=== PATIENT | female | born 1935 | race Caucasian/White ===

== ENCOUNTER → 2017-07-09 08:17 | Outpatient (CLI) | payer MEDICARE, OTHER, SELFPAY ==
[2017-07-09 10:07] LABS: Hemoglobin A1c 6.1 % (4.2-6.3)
[2017-07-09 10:13] LABS: ALB/GLOB Ratio 0.9 RATIO (0.9-2.4); AST(SGOT) 22 U/L (15-37); Alanine Aminotransfer ALT/SGPT 15 U/L (13-56); Albumin, Serum 3.6 g/dL (3.2-5.0); Alkaline Phosphatase 78 U/L (45-117); BUN 25 mg/dL (7-18); BUN/Creat Ratio 18.8 RATIO (10-20); Calcium,Total 9.2 mg/dL (8.5-10.1); Creatinine, Serum 1.33 mg/dL (0.55-1.02); EST Glomerular Filtration Rate 41 mL/min (>60); Est Glom Filt Rate - Afr Amer 49 mL/min (>60); Globulin 4.2 g/dL (2.2-4.2); Glucose 102 mg/dL (74-106); Protein, Total 7.8 g/dL (6.4-8.2); Sodium Level 141 mmol/L (136-145)
[2017-07-09 10:14] LABS: Anion Gap 9 (5-15); Chloride 103 mmol/L (98-107); Potassium 4.3 mmol/L (3.5-5.1)
[2017-07-09 10:20] LABS: AST(SGOT) 24 U/L (15-37); Alanine Aminotransfer ALT/SGPT 15 U/L (13-56); Albumin, Serum 3.5 g/dL (3.2-5.0); Alkaline Phosphatase 78 U/L (45-117); Cholesterol 147 mg/dL (200); Globulin 4.5 g/dL (2.2-4.2); High Density Lipoprotein 40 mg/dL; Triglycerides 266 mg/dL; Very Low Density Lipoprotein 53 mg/dL (5-40)
[2017-07-10 08:49] LABS: Vitamin D,25 Hydroxy 43.4 ng/mL (29.95-100.01)
== END ==
PROVIDERS: Internal Medicine Cardiovascular Disease; Family Provider Family Medicine; PCP Family Medicine; Visit Provider Internal Medicine Endocrinology, Diabetes & Metabolism
DX: E11.42 Type 2 diabetes mellitus with diabetic polyneuropathy (principal); E55.9 Vitamin D deficiency, unspecified
CPT/HCPCS: 36415; 80053; 80061; 80076; 82306; 83036

== ENCOUNTER → 2017-08-28 07:30 | Outpatient (CLI) | payer MEDICARE, OTHER, SELFPAY ==
--- NOTE | 2017-08-28 07:32 | BI_ITS ---
MAMMOGRAPHY - BILATERAL SCREENING REASON FOR EXAM: Female, 82 years old. Routine annual screening examination. PERTINENT HISTORY: Remote right excisional breast biopsy. TECHNIQUE: Digital bilateral breast milan (3D mammographic acquisition) in the CC and MLO projections. 2-D mediolateral oblique (MLO) and craniocaudad (CC) views of both breasts were obtained. CAD: Full Field Digital Mammography with Computer Added Detection was performed. COMPARISON: Comparison is made with prior study dated March 28, 2016 and February 23, 2015. FINDINGS: Breast Composition: There are scattered areas of fibroglandular density. There are no dominant masses or suspicious calcifications. No other significant abnormalities are identified. There has been no significant change since the prior study. BI/SCREENING MAMM (CAD), BILAT IMPRESSION: Stable bilateral screening mammogram. Yearly follow-up mammogram recommended. (A) ASSESSMENT CATEGORY: BIRADS Category 1: Negative. A letter regarding these results will be sent to the patient by the facility within 30 days. Approximately 10% of breast cancers are not detected by mammography. A normal mammogram should not delay biopsy of a clinically suspicious abnormality. [id number] Electronically Signed: Alfonso Perez MD at 9:50 EDT Tel [phone], Service support ,
== END ==
PROVIDERS: Family Provider Nurse Practitioner; PCP Nurse Practitioner; Visit Provider Nurse Practitioner
DX: Z12.31 Encounter for screening mammogram for malignant neoplasm of breast (principal)
CPT/HCPCS: 77063; 77067

== ENCOUNTER → 2017-10-14 10:02 | Outpatient (CLI) | payer MEDICARE, OTHER, SELFPAY ==
[2017-10-14 11:48] LABS: ALB/GLOB Ratio 0.8 RATIO (0.9-2.4); AST(SGOT) 21 U/L (15-37); Alanine Aminotransfer ALT/SGPT 16 U/L (13-56); Albumin, Serum 3.5 g/dL (3.2-5.0); Alkaline Phosphatase 90 U/L (45-117); Anion Gap 9 (5-15); BUN 21 mg/dL (7-18); BUN/Creat Ratio 15.2 RATIO (10-20); Calcium,Total 9.2 mg/dL (8.5-10.1); Chloride 104 mmol/L (98-107); Creatinine, Serum 1.38 mg/dL (0.55-1.02); EST Glomerular Filtration Rate 39 mL/min (>60); Est Glom Filt Rate - Afr Amer 47 mL/min (>60); Globulin 4.4 g/dL (2.2-4.2); Glucose 105 mg/dL (74-106); Potassium 4.8 mmol/L (3.5-5.1); Protein, Total 7.9 g/dL (6.4-8.2); Sodium Level 141 mmol/L (136-145)
[2017-10-14 15:18] LABS: Microalbumin,Random Urine 50.9 mg/L (NO RANGE EST.); Microalbumin:Creatinine Ratio 46.3 mg/g CRE (<30 mg/g CRE)
== END ==
PROVIDERS: Family Provider Nurse Practitioner; PCP Nurse Practitioner; Visit Provider Internal Medicine Endocrinology, Diabetes & Metabolism
DX: E11.42 Type 2 diabetes mellitus with diabetic polyneuropathy (principal)
CPT/HCPCS: 36415; 80053; 82043; 82570; 83036

== ENCOUNTER → 2017-10-29 08:56 | Outpatient (CLI) | payer MEDICARE, OTHER, SELFPAY ==
[2017-10-30 16:11] LABS: PROEL- A/G Ratio 0.9 (0.7-1.7); PROEL- Albumin 3.4 g/dL (2.9-4.4); PROEL- Alpha-1 Globulin 0.2 g/dL (0.0-0.4); PROEL- Alpha-2 Globulin 1.2 g/dL (0.4-1.0); PROEL- Beta Globulin 1.2 g/dL (0.7-1.3); PROEL- Gamma Globulin 1.4 g/dL (0.4-1.8); PROEL- TOTAL PROTEIN 7.4 g/dL (6.0-8.5)
[2017-10-31 14:07] LABS: PROELU- Albumin, Urine 51.9 % (.); PROELU- Alpha-1-Globulin,Ur 4.7 % (.); PROELU- Beta Globulin, Ur 19.8 % (.); PROELU- Gamma Globulin, Ur 10.7 % (.)
[2017-11-01 11:46] LABS: Total Protein, Ur < 4.0 mg/dL (Not Estab.)
== END ==
PROVIDERS: Family Provider Nurse Practitioner; PCP Nurse Practitioner; Visit Provider Internal Medicine Endocrinology, Diabetes & Metabolism
DX: E11.42 Type 2 diabetes mellitus with diabetic polyneuropathy (principal)
CPT/HCPCS: 36415; 84165; 84166

== ENCOUNTER → 2018-02-17 10:11 | Outpatient (CLI) | payer MEDICARE, OTHER, SELFPAY ==
[2018-02-17 10:10] VITALS: BMI 37.6
[2018-02-17 11:41] LABS: Hemoglobin A1c 6.2 % (4.2-6.3)
[2018-02-17 11:43] LABS: ALB/GLOB Ratio 0.8 RATIO (0.9-2.4); AST(SGOT) 20 U/L (15-37); Alanine Aminotransfer ALT/SGPT 19 U/L (13-56); Albumin, Serum 3.4 g/dL (3.2-5.0); Alkaline Phosphatase 97 U/L (45-117); Anion Gap 10 (5-15); BUN 21 mg/dL (7-18); BUN/Creat Ratio 15.6 RATIO (10-20); Calcium,Total 9.1 mg/dL (8.5-10.1); Chloride 101 mmol/L (98-107); Creatinine, Serum 1.35 mg/dL (0.55-1.02); EST Glomerular Filtration Rate 40 mL/min (>60); Est Glom Filt Rate - Afr Amer 48 mL/min (>60); Globulin 4.5 g/dL (2.2-4.2); Glucose 131 mg/dL (74-106); Magnesium 1.9 mg/dL (1.6-2.6); Potassium 4.4 mmol/L (3.5-5.1); Protein, Total 7.9 g/dL (6.4-8.2); Sodium Level 140 mmol/L (136-145)
--- OUTSIDE RECORDS SUMMARY | 2018-05-21 23:08 | XMS RPT_ITS ---
:1935 Author Organization OHIP Care Team Providers Name Role Phone MS. SARA VOGEL Attending Unavailable [facility], [facility] Primary Care Unavailable NOHEMY JENKINS Attending Unavailable NOHEMY JENKINS [facility]erring [facility] Unavailable Roro Linton Attending Unavailable Uday Walker Attending Unavailable Kari Deshpande Referring Unavailable NOHEMY JENKINS Attending Unavailable NOHEMY JENKINS Referring Unavailable Kari Deshpande [facility] Referring Unavailable [facility] Primary Care Unavailable Roro Smith Attending Unavailable Kari Deshpande [facility] Unavailable NOHEMY JENKINS Attending Unavailable NOHEMY JENKINS Referring [facility] Unavailable NOHEMY JENKINS Attending Unavailable NOHEMY JENKINS Referring Un[facility] Unavailable PROBLEMS PROBLEMS DATE TYPE CONDITION / CODE ATTENDING STATUS SOURCE 02/17/2018 Unknown 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 / Repository E11.42(ICD-10) 02/17/2018 Unknown E03.8 - Other WINOHEMY KEVIN Active [place] specified Community hypothyroidism / Hospital E03.8(ICD-10) Repository 02/17/2018 Unknown 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 - Magnesium WIETENOHEMY MALIK Active [place] deficiency / Community E61.2(ICD-10) Hospital Repository 07/09/2017 Unknown E55.9 - Vitamin D WIETENOHEMY MALIK Active [facility] deficiency, Community unspecified / Hospital E55.9(ICD-10) Repository 04/05/2017 Unknown I43 - Cardiomyopathy MoodispaUday anaya Active [facility] in diseases Community classified elsewhere Hospital / I43(ICD-10) Repository 04/05/2017 Unknown I50.22 - Chronic Moodispaw, Uday Active [place] systolic Community (congestive) heart Hospital failure / Repository I50.22(ICD-10) 04/05/2017 Unknown Q21.1 - Atrial Moodispaw, Uday Active [facility] septal defect / Community Q21.1(ICD-10) Hospital Repository 04/05/2017 Unknown E78.5 - Moodispahéctor, Uday Active [facility] Hyperlipidemia, Community unspecified / Hospital E78.5(ICD-10) Repository 04/05/2017 Unknown I10 - Essential Moodispahéctor, Uday Active [place] (primary) Community hypertension / Hospital I10(ICD-10) Repository 04/05/2017 Unknown Z79.899 - Other long Moodispahéctor, Uday Active [facility] term (current) drug Community therapy / Hospital Z79.899(ICD-10) Repository PROCEDURES PROCEDURES No Procedure Records FoundRESULTS RESULTS HEMOGLOBIN A1C Collected: 02/17/2018 Status: F Source: [place] 10:17 AM [facility] REPOSITORY TYPE CODE TESTS RESULT OUT OF RANGE REFERENCE UNITS LAB L501.9985 4.2-6.3 % Normal HGB A1C 6.2 Performed By: #### L501.9985 #### [facility] [place], [address] COMPREHENSIVE METABOLIC Collected: 02/17/2018 Status: F Source: [place] GOOD 10:17 AM [facility] REPOSITORY TYPE CODE TESTS RESULT OUT OF RANGE REFERENCE UNITS LAB L501.0100 74-106 mg/dL High GLU 131 Result Comment: Fasting Glucose result greater than or equal to 126 mg/dL suggests DIABETES MELLITUS per A.D.A. criteria. Please note revised GLUCOSE reference range effective 2017. LAB L501.1000 7-18 mg/dL High BUN 21 LAB L501.1100 0.55-1.02 mg/dL High CREAT,SERUM 1.35 Result Comment: The validity of the calculated GFR AND GFRAA in patients over 70 years has not been determined. Clinical correlation is essential. LAB L501.1110 >60 mL/min Low EST GFR 40 Result Comment: Non- GFR Calc LAB L501.1115 >60 mL/min Low EST GFR - AA 48 Result Comment: GFR Calc LAB L501.1300 10-20 RATIO Normal BUN/CRE 15.6 LAB L501.1500 6.4-8.2 g/dL T Normal PROT 7.9 LAB L501.1800 3.2-5.0 g/dL Normal ALB 3.4 LAB L501.1950 2.2-4.2 g/dL High GLOB 4.5 LAB L501.2000 0.9-2.4 RATIO Low A/G 0.8 LAB L501.2200 8.5-10.1 mg/dL CA Normal 9.1 LAB L501.4100 15-37 U/L Normal AST 20 Result Comment: Slight Hemolysis, Result may be falsely increased. LAB L501.4305 45-117 U/L Normal ALK P 97 LAB L501.4405 13-56 U/L Normal ALT 19 LAB L501.4600 0.20-1.00 mg/dL Normal T BILI 0.50 LAB L501.5300 136-145 mmol/L Normal NA 140 LAB L501.5600 3.5-5.1 mmol/L Normal K 4.4 Result Comment: Slight Hemolysis, Result may be falsely increased. LAB L501.5900 98-107 mmol/L Normal CL 101 LAB L501.6100 21.0-32.0 mmol/L Normal CO2 29.0 LAB L501.6200 5-15 Normal GAP 10 Performed By: #### L500.4050, L501.5200, L501.9520 #### [facility] [address] [place], [address] MAGNESIUM Collected: 02/17/2018 Status: F Source: [place] 10:17 AM [facility] REPOSITORY TYPE CODE TESTS RESULT OUT OF RANGE REFERENCE UNITS LAB L501.5200 1.6-2.6 mg/dL Normal MG 1.9 Result Comment: Slight Hemolysis, Result may be falsely increased. Performed By: #### L500.4050, L501.5200, L501.9520 #### [facility] [address] [place], [address] THYROID STIM HORMONE Collected: 02/17/2018 Status: F Source: [place] (TSH) 10:17 AM [facility] REPOSITORY TYPE CODE TESTS RESULT OUT OF RANGE REFERENCE UNITS LAB L501.9520 0.358-3.74 uIU/mL Normal TSH 1.70 Performed By: #### L500.4050, L501.5200, L501.9520 #### [facility] [address] [place], [address] CMP Collected: 11/27/2017 Status: F Source: [facility] 10:27 AM [facility] REPOSITORY TYPE CODE TESTS RESULT OUT OF REFERENCE UNITS RANGE LAB GLU(LOINC) 83-110 mg/dL Glucose Level 106 LAB NA(LOINC) 136-145 mmol/L Sodium Level 136 LAB K(LOINC) 3.5-5.1 mmol/L Potassium High Level 5.3 LAB CL(LOINC) 98-107 mmol/L Chloride 99 LAB CO2(LOINC) 23-31 mmol/L CO2 30 LAB EBAL(LOINC mEq/L ) Electrolyte Balance 7.0 LAB BUN(LOINC) 7-18 mg/dL BUN High 20 LAB CRE(LOINC) 0.55-1.02 mg/dL Creatinine High Lvl (s) 1.42 LAB BC(LOINC) 7-27 ratio BUN/Creatinine 14 Ratio LAB CA(LOINC) 8.4-10.2 mg/dL Calcium Lvl 9.8 LAB PROT(LOINC 6.4-8.2 G/dL ) Total Protein 7.6 LAB ALB(LOINC) 3.4-4.8 G/dL Albumin Level 3.7 LAB GLB(LOINC) G/dL Globulin 3.9 LAB AG(LOINC) 1.1-2.5 ratio Low A/G Ratio 0.9 LAB BILT(LOINC 0.2-1.0 mg/dL ) Bili Total 0.5 LAB AP(LOINC) 40-135 U/L Alk Phos 98 LAB AST(LOINC) 10-40 U/L AST/SGOT 19 LAB ALT(LOINC) 10-35 U/L ALT/SGPT 18 Performed By: #### CMP, GFR #### [place] [address] .GFR Collected: 11/27/2017 Status: F Source: [facility] 10:27 AM [facility] REPOSITORY TYPE CODE TESTS RESULT OUT OF REFERENCE UNITS RANGE LAB GFRAA(LOINC ml/min/1.73 ) sqm GFR 43 [place] Result Comment: GFR Population mean for , Non- Americans Ages 20-29 = 116 mL/min/1.73 sq.m. Ages 30-39 = 107 mL/min/1.73 sq.m. Ages 40-49 = 99 mL/min/1.73 sq.m. Ages 50-59 = 93 mL/min/1.73 sq.m. Ages 60-69 = 85 mL/min/1.73 sq.m. Ages 70+ = 75 mL/min/1.73 sq.m. Chronic Kidney Disease: Less than 60 mL/min/1.73 square meters End Stage Renal Disease: Less than 15 mL/min/1.73 square meters LAB GFRNO(LOINC) ml/min/1.73sqm GFR Non- 35 Result Comment: GFR Population mean for , Non- Americans Ages 20-29 = 116 mL/min/1.73 sq.m. Ages 30-39 = 107 mL/min/1.73 sq.m. Ages 40-49 = 99 mL/min/1.73 sq.m. Ages 50-59 = 93 mL/min/1.73 sq.m. Ages 60-69 = 85 mL/min/1.73 sq.m. Ages 70+ = 75 mL/min/1.73 sq.m. Chronic Kidney Disease: Less than 60 mL/min/1.73 square meters End Stage Renal Disease: Less than 15 mL/min/1.73 square meters Performed By: #### CMP, GFR #### [place] [address] PROTEIN ELECTROPH, S Collected: 10/29/2017 Status: F Source: [place] 9:03 AM [facility] REPOSITORY TYPE CODE TESTS RESULT OUT OF RANGE REFERENCE UNITS LAB L3100.3500 6.0-8.5 g/dL Normal PROTEIN,TOTAL 7.4 LAB L3100.3600 2.9-4.4 g/dL Normal ALBUMIN 3.4 LAB L3100.3700 0.0-0.4 g/dL Normal ALPHA-1 GLOBUL 0.2 LAB L3100.3800 0.4-1.0 g/dL High ALPHA-2 GLOBUL 1.2 LAB L3100.3900 0.7-1.3 g/dL Normal BETA GLOBULIN 1.2 LAB L3100.4000 0.4-1.8 g/dL Normal GAMMA GLOBULIN 1.4 LAB L3100.4110 Normal M-SPIKE Result Comment: NOT OBSERVED LAB L3100.4200 2.2-3.9 g/dL GLOBULIN, TOTAL High 4.0 LAB L3100.4300 0.7-1.7 A/G RATIO Normal 0.9 LAB L3100.4320 . INTERPRETATION Normal Comment Result Comment: Protein electrophoresis scan will follow via computer, mail, or convict guard delivery. LAB L3100.4340 . Normal NOTE: Comment Result Comment: The SPE pattern is suggestive of a subacute inflammatory response. This condition represents an intermediate stage between two possible courses for acute inflammation: total convalescense with a return to normal, or the onset of a chronic inflammatory condition. Performed at: - [facility] [address] [id number] Tenterer: Cj Drew PhD, Phone: [phone] Performed By: #### L3100.3450 #### [facility] (refer to report for specific site) refer to report for address and phone number PROTEIN ELECTRO.UR-RANDOM Collected: Status: F Source: [place] 10/29/2017 9:03 AM [facility] REPOSITORY TYPE CODE TESTS RESULT OUT OF RANGE REFERENCE UNITS LAB L3600.4100 Not Estab. mg/dL Normal < 4.0 PROTEIN,UR Result Comment: Verified by repeat analysis LAB L3600.4200 . % Normal ALBUMIN,UR 51.9 LAB L3600.4300 . % Normal ZFXOM-4-QNVN,U 4.7 LAB L3600.4400 . % Normal BKOSG-8-FQAG,U 13.0 LAB L3600.4500 . % Normal BETA GLOB,U 19.8 LAB L3600.4600 . % Normal GAMMA GLOB,U 10.7 LAB L3600.4720 Normal M-SPIKE,U Result Comment: NOT OBSERVED LAB L3600.4800 . Normal NOTE Comment Result Comment: Protein electrophoresis scan will follow via computer, mail, or convict guard delivery. Performed at: [facility] [employer] [id number] Tenterer: Cj Drew PhD, Phone: [phone] Performed By: #### L3600.4000 #### [facility] (refer to report for specific site) refer to report for address and phone number HEMOGLOBIN A1C Collected: 10/14/2017 Status: F Source: [place] 10:06 AM [facility] REPOSITORY TYPE CODE TESTS RESULT OUT OF RANGE REFERENCE UNITS LAB L501.9985 4.2-6.3 % Normal HGB A1C 6.0 Performed By: #### L501.9985 #### [facility] [address] [place], [place], [id number] COMPREHENSIVE METABOLIC Collected: 10/14/2017 Status: F Source: [facility] 10:06 AM [facility] REPOSITORY TYPE CODE TESTS RESULT OUT OF RANGE REFERENCE UNITS LAB L501.0100 74-106 mg/dL Normal GLU 105 Result Comment: Fasting Glucose result from 100 to 125 mg/dL suggests IMPAIRED HOMEOSTASIS per A.D.A. criteria. Please note revised GLUCOSE reference range effective 2017. LAB L501.1000 7-18 mg/dL High BUN 21 LAB L501.1100 0.55-1.02 mg/dL High CREAT,SERUM 1.38 Result Comment: The validity of the calculated GFR AND GFRAA in patients over 70 years has not been determined. Clinical correlation is essential. LAB L501.1110 >60 mL/min Low EST GFR 39 Result Comment: Non- GFR Calc LAB L501.1115 >60 mL/min Low EST GFR - AA 47 Result Comment: GFR Calc LAB L501.1300 10-20 RATIO Normal BUN/CRE 15.2 LAB L501.1500 6.4-8.2 g/dL T Normal PROT 7.9 LAB L501.1800 3.2-5.0 g/dL Normal ALB 3.5 LAB L501.1950 2.2-4.2 g/dL High GLOB 4.4 LAB L501.2000 0.9-2.4 RATIO Low A/G 0.8 LAB L501.2200 8.5-10.1 mg/dL CA Normal 9.2 LAB L501.4100 15-37 U/L Normal AST 21 LAB L501.4305 45-117 U/L Normal ALK P 90 LAB L501.4405 13-56 U/L Normal ALT 16 LAB L501.4600 0.20-1.00 mg/dL T Normal BILI 0.40 LAB L501.5300 136-145 mmol/L NA Normal 141 LAB L501.5600 3.5-5.1 mmol/L K Normal 4.8 LAB L501.5900 98-107 mmol/L CL Normal 104 LAB L501.6100 21.0-32.0 mmol/L Normal CO2 28.0 LAB L501.6200 5-15 Normal GAP 9 Performed By: #### L500.4050 #### [facility] [address] [place], [place], [id number] MICROALB:CREAT Collected: 10/14/2017 Status: F Source: [place] RATIO,RANDOM UR 10:06 AM [facility] REPOSITORY TYPE CODE TESTS RESULT OUT OF RANGE REFERENCE UNITS LAB L501.1200 NO RANGE EST. mg/dL Normal UR CREAT 110.00 LAB L502.0500 NO RANGE EST. mg/L Normal 50.9 MICROALBUMIN ,UR LAB L502.0600 <30 mg/g CRE mg/g CRE High 46.3 MALB:CREAT Performed By: #### L502.0250 #### [facility] [address] [place], [place], [id number] CARDIOLOGY VISIT Observed: 10/09/2017 Status: F Source: [place] REPORT 2:13 PM [facility] REPOSITORY [facility] [address] [place] [address] OFFICE VISIT Date of Service: 10/08/17 MR#: [id number] Acct: [id number] Name: IRINEO CORTEZ I Rep #: [id number] : 1935 Provider: Roro Smith Age/Sex: 82/F Location[place] [facility] [place] Status: Signed HPI HPI Details: IRINEO CORTEZ, is a 82 F who presents to the office today for a cardiovascular follow-up. She has a history of nonischemic cardiomyopathy, left bundle branch block, PFO versus ASD, valvular heart disease, hypertension, hyperlipidemia and peripheral edema. From a cardiac standpoint, patient is doing well. She does not have any chest discomfort/heaviness/tightness. Her exercise tolerance is stable for her age. She tries to go to [employer] 3 times a week She does not have any worsening symptoms of shortness of breath. She does not have any orthopnea. She denies PND. She does not have any symptoms of congestive heart failure. She does not have any palpitations that she is aware of. She does not have any lightheadedness or dizziness. She does not have any near-syncope or syncope. She does have lower extremity edema- this is not new and not any worse than before. She does not have any symptoms of claudication. Intake Vital Signs10/08/17 Height 4 ft 11 in 10/08/17 Weight: 188 lb 10/08/17 Body Mass Index (BMI) 38.0 10/08/17 Blood Pressure 128/78 10/08/17 Blood Pressure Location Lt brachial 10/08/17 Blood Pressure Position Sitting Intake Visit Reasons: 6 M FU Educational Program Director Required: No Accompanied by: none Is patient in pain?: No Allergies atorvastatin [From Lipitor] Adverse Reaction (Severe, Verified 04/05/17 11:21) Myalgias lovastatin [From Mevacor] Adverse Reaction (Intermediate, Verified 04/05/17 11:21) Myalgias rosuvastatin [From Crestor] Adverse Reaction (Intermediate, Verified 04/05/17 11:21) Myalgias simvastatin [From Zocor] Adverse Reaction (Intermediate, Verified 04/05/17 11:21) Myalgias Medications Handicap Placard See Label Instructions .ROUTE .COMPLEX #1 02/08/17 [Rx Confirmed 10/08/17] aspirin 81 mg tablet,delayed release 81 mg PO QDAY 02/08/17 [History Confirmed 10/08/17] omeprazole 20 mg tablet,delayed release 20 mg PO QDAY tab 02/08/17 [History Confirmed 10/08/17] calcium citrate-vitamin D3 315 mg-250 unit tablet 1 tab PO BID 04/04/17 [History Confirmed 10/08/17] furosemide 40 mg tablet 40 mg PO .PRN #30 tab 04/05/17 [Rx Confirmed 10/08/17] levothyroxine 112 mcg capsule 112 mcg PO QDAY cap 04/05/17 [History Confirmed 10/08/17] ramipril 10 mg capsule 10 mg PO BID #180 cap 04/05/17 [Rx Confirmed 10/08/17] rosuvastatin 20 mg tablet 20 mg PO .qod #90 tab 04/05/17 [Rx Confirmed 04/05/17] carvedilol 25 mg tablet 25 mg PO BID #180 tab 04/23/17 [Rx Confirmed 10/08/17] PFSH Medical History Hyperlipidemia (Acute) Aortic insufficiency (Acute) Cardiomyopathy in other diseases classified elsewhere (Acute) Chronic systolic congestive heart failure (Chronic) Patent foramen ovale (Chronic) Long-term use of high-risk medication (Acute) Cardiomegaly (Acute) Hypertension (Chronic) LBBB (left bundle branch block) (Acute) Abnormal electrocardiogram [ECG] [EKG] (Acute) Family history of CVA (Acute) GERD (gastroesophageal reflux disease) (Acute) Hypothyroidism (Acute) Type 2 diabetes mellitus (Acute) Surgical History History of breast surgery (Resolved) History of cholecystectomy (Resolved) Family History Mother CVA (cerebral vascular accident) Social History Smoking Status: Never smoker alcohol intake: never substance use type: does not use ROS Const Const: Negative for weakness, fatigue, fever(s) or headache(s) Eyes Eyes: Negative for blind spots, loss of peripheral vision or transient loss of vision ENT ENT: Negative for headache(s), dizziness, tinnitus or Nosebleed/epistaxis Cardio Chest Pain: No Palpitations: No Edema: Bilateral Muscle aches with walking: None Resp Respiratory: Negative for SOB with activity, SOB at rest, SOB orthopnea\SOB lying down or Cough GI GI: Negative nausea, vomiting, heartburn or vomiting blood/hematemesis : Negative for hematuria Musc Musc: Negative for muscle aches/ myalgia Neuro Neuro: Negative for weakness, headache(s), dizziness, near syncope, syncope, lightheadedness or orthostatic symptoms Miguel Hematologic/Lymphatic: Negative for easy bleeding Endo Endo: Negative for fatigue Cardiology Exam Const Appearance: cooperative, healthy appearing, comfortable, no acute distress, well developed and well groomed Nutritional Appearance: overweight Orientation: alert, awake and oriented x3 Head Head: normal to inspection, normocephalic and atraumatic Ears: hearing grossly normal bilaterally Nose: external nose normal Face and Sinus: face symmetric Mouth: oral mucosae normal Teeth and gingiva: dentition normal Eyes General: appearance normal, both eyes and all related structures Eyelids: eyelids normal Conjunctivae: conjunctivae normal Pupils: PERRL EOM: EOM intact bilaterally Neck Neck: normal visual inspection and full ROM Carotids: normal carotid upstroke Chest Chest inspection: normal inspection of the chest and symmetric chest movement Auscultation: Bilateral: Clear to Auscultation Cardio Palpation: normal PMI Rate: regular rate Rhythm: regular rhythm Heart sounds: S1 normal and S2 normal GI GI: normal to inspection, soft, no hepatosplenomegaly and bowel sounds present Neuro General: alert, awake and oriented x3 Skin Skin: no rashes or lesions noted Extremities Pulses: Normal: Right Radial Pulse, Left Radial Pulse Lower Extremity Edema: +1: Bilateral Psych Psychological: normal affect Supplemental Info Echocardiogram in 2014 demonstrated mild global left ventricular systolic dysfunction with an estimated ejection fraction of 45%. Left and right atrium mildly enlarged. Mild mitral valve insufficiency. Moderate tricuspid valve insufficiency. Mild focal aortic valve thickening. RVSP 41 mmHg. Assessment AND Plan 1. Cardiomyopathy in other diseases classified elsewhere I43 Plan Patient does not have any symptoms of congestive heart failure. She will continue with her current medications. Will not make any adjust this. 2. Patent foramen ovale Q21.1 Plan We will continue to monitor by history and exams. She does have a history of what is thought to be compatible with an intra-atrial shunt compatible with PFO versus ASD. 3. Essential hypertension I10 Plan Blood pressure is well controlled on current medications, we do not recommend any changes at this time. 4. Pure hypercholesterolemia E78.00; E78.0 Plan Recent lipid profile demonstrates total cholesterol 147, HDL 40, LDL 54. Will continue with current medical management. Plan Detail Additional Comments Thank you for allowing us to participate in the patients plan of care, if you have any questions please do not hesitate to call. This note was generated using a voice recognition system and there may be incorrect words, spelling or punctuation that were not noted when reviewing the office note prior to saving. Follow Up 1 Year (PFM) Coding Level of Care Code Off vis,est,level 3 Diagnoses Cardiomyopathy in other diseases classified elsewhere I43 Patent foramen ovale Q21.1 Essential hypertension I10 Hypertension type: essential hypertension Pure hypercholesterolemia E78.00; E78.0 Hyperlipidemia type: pure hypercholesterolemia Coding Level of Care Code Off vis,est,level 3 Diagnoses Cardiomyopathy in other diseases classified elsewhere I43 Patent foramen ovale Q21.1 Essential hypertension I10 Hypertension type: essential hypertension Pure hypercholesterolemia E78.00; E78.0 Hyperlipidemia type: pure hypercholesterolemia 10/09/17 1413 <Electronically signed by Roro NEIL> Date Roro NEIL Cosigner Signature: Date (if applicable) CC: Missy Long NP SCREENING MAMM (CAD), Observed: 08/28/2017 Status: F Source: [place] BIL[place] 7:33 AM [facility] REPOSITORY [facility] Imaging Services [address] [place] [address] SCREENING MAMM (CAD), BILAT MR#: [id number] Acct: [id number] Name: IRINEO CORTEZ I Rep #: [id number] : 1935 F 82 From: Alfonso Perez MD PCP: Missy Long NP Status: REG CL Study: SCREENING MAMM (CAD), BILAT Date of Exam: 08/28/17 Exam# [id number] Ordering Dr: Missy Long MAMMOGRAPHY - BILATERAL SCREENING REASON FOR EXAM: Female, 82 years old. Routine annual screening examination. PERTINENT HISTORY: Remote right excisional breast biopsy. TECHNIQUE: Digital bilateral breast milan (3D mammographic acquisition) in the CC and MLO projections. 2-D mediolateral oblique (MLO) and craniocaudad (CC) views of both breasts were obtained. CAD: Full Field Digital Mammography with Computer Added Detection was performed. COMPARISON: Comparison is made with prior study dated March 28, 2016 and February 23, 2015. FINDINGS: Breast Composition: There are scattered areas of fibroglandular density. There are no dominant masses or suspicious calcifications. No other significant abnormalities are identified. There has been no significant change since the prior study. BI/SCREENING MAMM (CAD), BILAT IMPRESSION: Stable bilateral screening mammogram. Yearly follow-up mammogram recommended. (A) ASSESSMENT CATEGORY: BIRADS Category 1: Negative. A letter regarding these results will be sent to the patient by the facility within 30 days. Approximately 10% of breast cancers are not detected by mammography. A normal mammogram should not delay biopsy of a clinically suspicious abnormality. [id number] Electronically Signed: Alfonso Perez MD at 9:50 EDT Tel [phone], Service support , CC: Missy Long NP Rn Visiting: Signed LIVER PROFILE Collected: 07/09/2017 Status: F Source: [place] 8:31 AM [facility] REPOSITORY Order Comment: INTERNAL ORDER LOOKED IN SYSTEM DID NOT SEE WHERE LABS HAVE BEEN DRAWN. NO VRO CHARGED. CHARGED ON DR JENKINS ORDER. Order Date: 10/02/16 Order Info: [id number] - *Hepatic Function Panel Order Info: [id number] - *Lipid Profile CC PCP Comments: 12 hours fasting, may have water. TYPE CODE TESTS RESULT OUT OF RANGE REFERENCE UNITS LAB L501.1500 6.4-8.2 g/dL Normal T PROT 8.0 LAB L501.1800 3.2-5.0 g/dL Normal ALB 3.5 LAB L501.1950 2.2-4.2 g/dL High GLOB 4.5 LAB L501.4100 15-37 U/L Normal AST 24 LAB L501.4305 45-117 U/L Normal ALK P 78 LAB L501.4405 13-56 U/L Normal ALT 15 LAB L501.4600 0.20-1.00 mg/dL Normal T BILI 0.40 LAB L501.4700 0.00-0.30 mg/dL Normal D BILI 0.10 Performed By: #### L500.3400 #### [facility] [address] [place], [address] LIPID PROFILE Collected: 07/09/2017 Status: F Source: [place] 8:31 AM [facility] REPOSITORY Order Comment: INTERNAL ORDER LOOKED IN SYSTEM DID NOT SEE WHERE LABS HAVE BEEN DRAWN. NO VRO CHARGED. CHARGED ON DR JENKINS ORDER. Order Date: 10/02/16 Order Info: [id number] - *Hepatic Function Panel Order Info: [id number] - *Lipid Profile CC PCP Comments: 12 hours fasting, may have water. TYPE CODE TESTS RESULT OUT OF RANGE REFERENCE UNITS LAB L501.4900 200 mg/dL Normal CHOL 147 Result Comment: <200 mg/dL Desirable 200-240 mg/dL Borderline >240 mg/dL High Risk LAB L501.5000 mg/dL High TRIG 266 Result Comment: The drugs N-Acetylcysteine and Metamizole may falsely depress this assay. Serum Triglycerides Reference Interval Normal <150 mg/dL Borderline high 150 - 199 mg/dL High 200 - 499 mg/dL Very High > or = 500 mg/dL LAB L501.6400 mg/dL Normal HDL 40 Result Comment: The drugs N-Acetylcysteine and Metamizole may falsely depress this assay. Reference Range HDL <40 mg/dL Low HDL Cholesterol HDL >or= 60 mg/dL High HDL Cholesterol LAB L501.6500 0-130 mg/dL Normal LDL 54 LAB L501.6600 5-40 mg/dL High VLDL 53 Performed By: #### L500.4100 #### [facility] [address] [place], [address] HEMOGLOBIN A1C Collected: 07/09/2017 Status: F Source: [place] 8:27 AM [facility] REPOSITORY TYPE CODE TESTS RESULT OUT OF RANGE REFERENCE UNITS LAB L501.9985 4.2-6.3 % Normal HGB A1C 6.1 Performed By: #### L501.9985 #### [facility] [address] [place], [address] COMPREHENSIVE METABOLIC Collected: 07/09/2017 Status: F Source: [facility] 8:27 AM [facility] REPOSITORY TYPE CODE TESTS RESULT OUT OF RANGE REFERENCE UNITS LAB L501.0100 74-106 mg/dL Normal GLU 102 Result Comment: Fasting Glucose result from 100 to 125 mg/dL suggests IMPAIRED HOMEOSTASIS per A.D.A. criteria. Please note revised GLUCOSE reference range effective 2017. LAB L501.1000 7-18 mg/dL High BUN 25 LAB L501.1100 0.55-1.02 mg/dL High CREAT,SERUM 1.33 Result Comment: The validity of the calculated GFR AND GFRAA in patients over 70 years has not been determined. Clinical correlation is essential. LAB L501.1110 >60 mL/min Low EST GFR 41 Result Comment: Non- GFR Calc LAB L501.1115 >60 mL/min Low EST GFR - AA 49 Result Comment: GFR Calc LAB L501.1300 10-20 RATIO Normal BUN/CRE 18.8 LAB L501.1500 6.4-8.2 g/dL T Normal PROT 7.8 LAB L501.1800 3.2-5.0 g/dL Normal ALB 3.6 LAB L501.1950 2.2-4.2 g/dL Normal GLOB 4.2 LAB L501.2000 0.9-2.4 RATIO Normal A/G 0.9 LAB L501.2200 8.5-10.1 mg/dL CA Normal 9.2 LAB L501.4100 15-37 U/L Normal AST 22 LAB L501.4305 45-117 U/L Normal ALK P 78 LAB L501.4405 13-56 U/L Normal ALT 15 LAB L501.4600 0.20-1.00 mg/dL T Normal BILI 0.40 LAB L501.5300 136-145 mmol/L NA Normal 141 LAB L501.5600 3.5-5.1 mmol/L K Normal 4.3 LAB L501.5900 98-107 mmol/L CL Normal 103 LAB L501.6100 21.0-32.0 mmol/L Normal CO2 29.0 LAB L501.6200 5-15 Normal GAP 9 Performed By: #### L500.4050 #### [facility] [address] [place], [address] VITAMIN D,25 HYDROXY Collected: 07/09/2017 Status: F Source: [place] 8:27 AM [facility] REPOSITORY TYPE CODE TESTS RESULT OUT OF RANGE REFERENCE UNITS LAB L506.1000 29.95-100.01 ng/mL Normal Vitamin D 43.4 25-OH Result Comment: Vitamin D 25(OH) Status Range Deficiency <20 ng/mL (50nmol/L) Insuffciency 20 - 30 ng/mL (50 - 75 nmol/L) Sufficiency 30 - 100 ng/mL (75 - 250 nmol/L) Toxicity >100 ng/mL (>250 nmol/L) Performed By: #### L506.1000 #### [facility] [address] [place], [address] CARDIOLOGY VISIT Observed: 04/05/2017 Status: F Source: [place] REPORT 12:07 PM [facility] REPOSITORY [facility] [address] [place] [address] OFFICE VISIT Date of Service: 04/05/17 MR#: [id number] Acct: [id number] Name: IRINEO CORTEZ Heather Rep #: [id number] : 1935 Provider: Uday Walker MD Age/Sex: 81/F [place] [facility] [place]: Signed HPI 6 M FU: Details: IRINEO CORTEZ, is a 81 F who presents to the office today for for outpatient cardiovascular follow-up of her history of an underlying non- CAD related cardiomyopathy, chronic systolic CHF, interatrial shunt compatible with PFO versus ASD, hyperlipidemia, and hypertension. She states that overall she is doing well. She is not complaining of any ongoing symptoms of classic angina pectoris nor has she had any overt episodes of CHF or pulmonary edema. There has been no near syncope or syncope. She states she does not need her diuretic therapy every other day as previously prescribed. She states that she takes it less than 1 time per week. When she does take it she feels a release and then feels better overall. She had her lipid levels checked in the fall 2016. Overall her total cholesterol, LDL cholesterol, and HDL cholesterol appear to be under reasonably good control. Her triglycerides do wax and wane somewhat. As you recall she had a transthoracic echocardiogram performed on 10/28/2013. At that time her left ventricle was thought to be globally dysfunctional with an estimated LVEF of 45% with mild biatrial enlargement, mild MR, moderate TR, mild focal aortic valve thickening and an estimated RV systolic pressure 41 mmHg. Her previous stress test was performed and on 10/31/2001. It was a pharmacologic stress nuclear imaging study. At that time she had no evidence of ischemia. Her gated LVEF was 42%. She had a diagnostic cardiac catheterization performed on 12/05/2001. At that time her left ventricle was noted to have mild global left ventricular systolic dysfunction with an LVEF of 40%, she had angiographically normal-appearing coronary arteries, she had mild elevation of the left ventricular end-diastolic pressure and borderline to mild elevation of her intrapulmonary right heart pressures. Her ECG has demonstrated in the past underlying sinus rhythm with a left bundle branch block pattern. Intake Vital Signs04/05/17 Height 4 ft 11 in 04/05/17 Weight: 186 lb 6 oz 04/05/17 Body Mass Index (BMI) 37.6 04/05/17 Blood Pressure 136/72 Intake Visit Reasons: 6 M FU Allergies atorvastatin [From Lipitor] Adverse Reaction (Severe, Verified 04/05/17 11:21) Myalgias lovastatin [From Mevacor] Adverse Reaction (Intermediate, Verified 04/05/17 11:21) Myalgias rosuvastatin [From Crestor] Adverse Reaction (Intermediate, Verified 04/05/17 11:21) Myalgias simvastatin [From Zocor] Adverse Reaction (Intermediate, Verified 04/05/17 11:21) Myalgias Medications Handicap Placard See Label Instructions .ROUTE .COMPLEX #1 02/08/17 [Rx Confirmed 04/05/17] aspirin 81 mg tablet,delayed release 81 mg PO QDAY 02/08/17 [History Confirmed 04/05/17] omeprazole 20 mg tablet,delayed release 20 mg PO QDAY tab 02/08/17 [History Confirmed 04/05/17] calcium citrate-vitamin D3 315 mg-250 unit tablet 1 tab PO BID 04/04/17 [History Confirmed 04/05/17] carvedilol 25 mg tablet 25 mg PO BID #180 tab 04/05/17 [Rx Confirmed 04/05/17] furosemide 40 mg tablet 40 mg PO .PRN #30 tab 04/05/17 [Rx Confirmed 04/05/17] levothyroxine 112 mcg capsule 112 mcg PO QDAY cap 04/05/17 [History Confirmed 04/05/17] ramipril 10 mg capsule 10 mg PO BID #180 cap 04/05/17 [Rx Confirmed 04/05/17] rosuvastatin 20 mg tablet 20 mg PO .qod #90 tab 04/05/17 [Rx Confirmed 04/05/17] [facility] Medical History Hyperlipidemia (Acute) Aortic insufficiency (Acute) Cardiomyopathy in other diseases classified elsewhere (Acute) Chronic systolic congestive heart failure (Chronic) Patent foramen ovale (Chronic) Long-term use of high-risk medication (Acute) Cardiomegaly (Acute) Hypertension (Chronic) LBBB (left bundle branch block) (Acute) Abnormal electrocardiogram [ECG] [EKG] (Acute) Family history of CVA (Acute) GERD (gastroesophageal reflux disease) (Acute) Hypothyroidism (Acute) Type 2 diabetes mellitus (Acute) Surgical History History of breast surgery (Resolved) History of cholecystectomy (Resolved) Family History Mother CVA (cerebral vascular accident) Social History Smoking Status: Never smoker alcohol intake: never substance use type: does not use ROS Const Const: Negative for fatigue, weakness, weight gain, weight loss, frequent falls or excessive sweating Eyes Eyes: Negative for change in vision, blurry vision or transient loss of vision ENT ENT: Negative for dizziness, Negative for balance problems Cardio Chest Pain: No Palpitations: Positive for No Edema: Bilateral (dependent edema) Muscle aches with walking: None Resp Respiratory: Negative for SOB with activity or SOB at rest GI GI: Negative vomiting or vomiting blood/hematemesis : Negative for hematuria Musc Musc: Negative for balance problems, muscle aches/ myalgia, muscle weakness or joint pain Skin Skin: Negative non-healing lesions or rash Neuro Neuro: Negative for weakness, Negative for blurry vision, Negative for dizziness, Negative for lightheadedness, Negative for frequent falls, Negative for orthostatic symptoms Miguel Hematologic/Lymphatic: Negative for easy bleeding Endo Endo: Negative for fatigue or excessive sweating Psych Psych: Negative for anxiety or depression Allergy Allergy/Immunology: Negative for hives, Negative for rash Cardiology Exam Const Appearance: cooperative, healthy appearing, comfortable, no acute distress, well developed and well groomed Nutritional Appearance: overweight Orientation: alert, awake and oriented x3 Head Head: normal to inspection, normocephalic and atraumatic Ears: hearing grossly normal bilaterally Nose: external nose normal Face and Sinus: face symmetric Mouth: oral mucosae normal Teeth and gingiva: dentition normal Eyes General: appearance normal, both eyes and all related structures Eyelids: eyelids normal Conjunctivae: conjunctivae normal Pupils: PERRL EOM: EOM intact bilaterally Neck Neck: normal visual inspection and full ROM Carotids: normal carotid upstroke Chest Chest inspection: normal inspection of the chest and symmetric chest movement Auscultation: Bilateral: Clear to Auscultation Cardio Palpation: normal PMI Rate: regular rate Rhythm: regular rhythm Heart sounds: S1 normal and S2 normal GI GI: normal to inspection, soft, no hepatosplenomegaly and bowel sounds present Neuro General: alert, awake and oriented x3 Skin Skin: no rashes or lesions noted Extremities Pulses: Normal: Right Radial Pulse, Left Radial Pulse Lower Extremity Edema: +1: Bilateral Psych Psychological: normal affect Assessment AND Plan 1. Cardiomyopathy in other diseases classified elsewhere I43 Plan At the present time she appears to be doing well. She will continue her current medical therapy. She will be allowed to take her diuretic on a as needed basis. If her diuretic use increases she needs to notify the office for further evaluation and care. 2. Chronic systolic CHF (congestive heart failure) I50.22 Plan She is without acute symptoms of CHF or pulmonary edema at this time. Again she will continue medical management and follow-up. 3. Patent foramen ovale Q21.1 Plan She does have a history thought compatible with an intra-atrial shunt compatible with a PFO versus ASD. She has had no significant change by history and exam, etc. She will continue be followed and reassessed as needed. 4. Hyperlipidemia E78.5 5. Hypertension I10 Plan Her blood pressure appears to be recently well controlled today. She will continue her medical management and follow-up. 6. Long-term use of high-risk medication Z79.899 Plan She will continue medical therapy. Her lipids will be followed over time as deemed appropriate. Plan Detail Other Medications New: Additional Comments She will be scheduled for an outpatient visit approximately 6 months unless needed sooner. Thank you for allowing me to participate in the care of your patient. Please don't hesitate to call if any issues arise. This note was generated using a voice recognition system and there may be incorrect words, spelling or punctuation that were not noted when reviewing the office note prior to saving. Follow Up 6 Months (PA/M1 ARMOR CREWMAN) Coding Level of Care Code Off vis,est,level 3 Diagnoses Cardiomyopathy in other diseases classified elsewhere I43 Chronic systolic CHF (congestive heart failure) I50.22 Patent foramen ovale Q21.1 Hyperlipidemia E78.5 Hypertension I10 Long-term use of high-risk medication Z79.899 Coding Level of Care Code Off vis,est,level 3 Diagnoses Cardiomyopathy in other diseases classified elsewhere I43 Chronic systolic CHF (congestive heart failure) I50.22 Patent foramen ovale Q21.1 Hyperlipidemia E78.5 Hypertension I10 Long-term use of high-risk medication Z79.899 04/05/17 1207 <Electronically signed by Uday Walker MD> Date Uday Walker MD Cosigner Signature: Date (if applicable) CC: Kari Deshpande MD ALLERGIES ALLERGIES DATE TYPE / CODE NAME / CODE REACTION SEVERITY SOURCE 04/05/2017 Drug lovastatin/F [facility] Allergy/4160 [id number](RX Hospital 20437(SNOMED NORM) Repository CT) 04/05/2017 Drug simvastatin/ MYALGIAS [facility] Allergy/4160 [id number](R Hospital 11247(SNOMED XNORM) Repository CT) 04/05/2017 Drug atorvastatin MYALGIAS [facility] Allergy/4160 /[id number]( Hospital 69817(SNOMED RXNORM) Repository CT) 04/05/2017 Drug rosuvastatin MYALGIAS [facility] Allergy/4160 /[id number]( Hospital 69007(SNOMED RXNORM) Repository CT) ENCOUNTERS ENCOUNTERS ADMIT/DISCHARGE ACCOUNT NUMBER ADMITTING ENCOUNTER LOCATION SOURCE CLASS 02/17/2018 [id number] Ambulatory [facility] ding:LAB Repository 11/27/2017/11/28/19 [id number] Ambulatory BBuilding:MARIELA Garner [address] [place] [address] Repository 10/29/2017 [id number] Ambulatory [facility] ding:LAB Repository 10/14/2017 [id number] Ambulatory [facility] ding:LAB Repository 10/08/2017/10/09/19 [id number] Ambulatory BMSBuilding: [place] 18 BMS.[facility] Repository 08/28/2017 [id number] Ambulatory [facility] ding:OPBI Repository 07/09/2017 [id number] Ambulatory [facility] ding:LAB Repository 04/05/2017/04/05/19 [id number] Ambulatory BMSBuilding: [place] 18 BMS.[facility] Repository 04/04/2017 [id number] Ambulatory BMSBuilding: [place] BMS.[facility] Repository PAYERS PAYERS ENCOUNTER GUARANTOR PAYER SUBSCRIBER SOURCE 02/17/2018 IRINEO CORTEZ Primary IRINEO Marie [id number] Insurance:MEDICARE IDOB: [facility] PART A [facility] [id number] Number: Repository [id number]: [phone] [id number] [phone] (HP) Date:2018-02-17 02/17/2018 Secondary IRINEO DIEGO [place] Insurance:HUMANA IDOB: [facility] [id number] Hospital Number: Repository [id number] Date:2221-33-55[address] [place] [address]JH: 02/17/2018 Tertiary NOT GIVENUNK [place] Insurance:SELF PAY [facility] Number: Effective Repository Date:2018-02-17 11/27/2017 IRINEO CORTEZDOB: Primary IRINEO [facility] Insurance:MEDICARE WILLIAMSDOB[facility] [address] PART BPolicy Number: [id number] Repository [address], [place] [id number] [facility] [address]Jhn: ([phone]) Date:2017-11-27 - 2[place], [place] [phone] (HP) [id number] [id number]: (330) Name:[facility] [phone] (HP)Tel: Administrators [address] [address]Vwtbuowqf, () [place] [address]UG: 11/27/2017 Secondary [facility] Insurance:HUMANA DIEGODOB: [facility] [id number] Repository Number: [facility] [id number] #[place] Date:2017-11-27 [address]Tpr: [phone] [id number] [phone] (HP)Tel: Name:[employer]UMENT REPAIRER [address] [place] [address] () [address]GQ: 10/29/2017 FANNIEZan DIEGO Primary IRINEO CORTEZ [place] [id number] Insurance:MEDICARE [facility] [id number] Hospital RDLOT 2[place] Number: Repository [id number]: 330 [id number] [phone] (HP) Date:2017-10-29 10/29/2017 Secondary IRINEO CORTEZ [place] Insurance:HUMANA IDOB: [facility] [id number] Hospital Number: Repository [id number] Date:6556-06-93TS [address] [address]WW: 10/29/2017 Tertiary NOT GIVENUNK [place] Insurance:SELF PAY [facility] Number: Effective Repository Date:2017-10-29 10/14/2017 IRINEO CORTEZ Primary IRINEO CORTEZ [place] [id number] Insurance:MEDICARE IDOB: [facility] PART A [facility] [id number] Number: Repository [id number]: 330 [id number] [phone] () Date:2017-10-14 10/14/2017 Secondary IRINEO CORTEZ [place] Insurance:HUMANA IDOB: [facility] [id number] Hospital Number: Repository [id number] Date:3116-59-78UO [address] [address]JM: 10/14/2017 Tertiary NOT GIVENUNK [place] Insurance:SELF PAY [facility] Number: Effective Repository Date:2017-10-14 10/08/2017 IRINEO CORTEZ Primary IRINEO CORTEZ [place] [id number] Insurance:MEDICARE IDOB: [facility] PART A [facility] [id number] Number: Repository [id number]: 330 [id number] [phone] () Date:2017-04-05 10/08/2017 Secondary IRINEO CORTEZ [place] Insurance:HUMANA IDOB: [facility] [id number] Hospital Number: Repository [id number] Date:[id number] [address]LP: 10/08/2017 Tertiary NOT GIVENUNK [place] Insurance:SELF PAY [facility] Number: Effective Repository Date:2017-10-08 08/28/2017 IRINEO CORTEZ Primary IRINEO CORTEZ [place] [id number] Insurance:MEDICARE IDOB: [facility] PART A [facility] [id number] Number: Repository [id number]: 330 [id number] [phone] (HP) Date:2017-08-13 08/28/2017 Secondary IRINEO CORTEZ [place] Insurance:HUMANA IDOB: [facility] [id number] Hospital Number: Repository [id number] Date:[id number] [address]AB: 08/28/2017 Tertiary NOT GIVENUNK [place] Insurance:SELF PAY [facility] Number: Effective Repository Date:2017-08-13 07/09/2017 IRINEO CORTEZ Primary IRINEO CORTEZ [place] [id number] Insurance:MEDICARE IDOB: [facility] PART A [facility] [id number] Number: Repository [id number]: 330 [id number] [phone] () Date:2017-07-09 07/09/2017 Secondary IRINEO CORTEZ [place] Insurance:HUMANA IDOB: [facility] [id number] Hospital Number: Repository [id number] Date:[id number] [address]YN: 07/09/2017 Tertiary NOT GIVENUNK [place] Insurance:SELF PAY [facility] Number: Effective Repository Date:2017-07-09 04/05/2017 IRINEO CORTEZ Primary IRINEO CORTEZ [place] [id number] Insurance:MEDICARE IDOB: [facility] PART A [facility] [id number] Number: Repository [id number]: 330 [id number] [phone] () Date:2017-03-13 04/05/2017 Secondary IRINEO CORTEZ [place] Insurance:HUMANA IDOB: [facility] [id number] Hospital Number: Repository [id number] Date:9413-29-65QK [address] [place] [address]RC: 04/05/2017 Tertiary NOT GIVENUNK [place] Insurance:SELF PAY [facility] Number: Effective Repository Date:2017-03-13 04/04/2017 Irineo Cortez Primary Irineo Cortez [place] [id number] Insurance:MEDICARE IDOB: [facility] PART A [facility] [id number] Number: Repository [id number]: [phone] [id number] [phone] () Date:2017-04-04 04/04/2017 Secondary Irineo Marie Insurance:HUMANA IDOB: [facility] [id number] Hospital Number: Repository [id number] Date:0964-33-16ZK[address] [address]JV: 04/04/2017 Tertiary NOT GIVENUNK [place] Insurance:SELF PAY [facility] Number: Effective Repository Date:2017-04-04
== END ==
PROVIDERS: Family Provider Nurse Practitioner; PCP Nurse Practitioner; Referring Provider Internal Medicine Endocrinology, Diabetes & Metabolism; Visit Provider Internal Medicine Endocrinology, Diabetes & Metabolism
DX: E11.42 Type 2 diabetes mellitus with diabetic polyneuropathy (principal); E03.8 Other specified hypothyroidism; E61.2 Magnesium deficiency
CPT/HCPCS: 36415; 80053; 83036; 83735; 84443

== ENCOUNTER → 2018-08-04 | Outpatient (CLI) | payer MEDICARE, OTHER, SELFPAY ==
[2018-02-17 10:10] VITALS: BMI 37.6
[2018-08-04 09:19] LABS: Absolute Lymphocyte Count 1.37 X10^3/ul (0.83-4.51); Absolute Neutrophil Count 4.8 X10^3/uL (2.0-7.7); Basophil# 0.03 X10^3/uL; Basophil% 0.4 % (0-1); Eosinophil# 0.21 X10^3/uL; Eosinophils% 2.9 % (0-5); Hematocrit 40.5 % (37-47); Hemoglobin 12.9 g/dl (12.0-15.0); Lymphocyte # 1.37 X10^3/ul (4.0); Lymphocyte % 19.1 % (19-41); Mean Corp Hgb Conc 31.9 g/gl (32-36); Mean Corpuscular Hgb 28.6 pg (27.0-32.0); Mean Corpuscular Volume 89.8 fL (81-99); Mean Platelet Vol. 9.8 fl (6.2-12.0); Monocyte# 0.78 X10^3/uL; Monocyte% 10.9 % (0-10); Neutrophil # 4.76 X10^3/uL (2.7-7.7); Neutrophil % 66.4 % (47-70); Platelet Count 284 K/mm3 (150-450); RBC Distribution Width CV 14.9 % (11.6-14.6); RBC Distribution Width SD 48.7 fl (35.1-43.9); Red Blood Count 4.51 M/mm3 (4.2-5.4); White Blood Count 7.2 K/mm3 (4.4-11.0)
[2018-08-04 09:24] LABS: POSITIVE COUNT NO; POSITIVE DIFFERENTIAL NO; POSITIVE MORPHOLOGY NO
[2018-08-04 09:40] LABS: ALB/GLOB Ratio 0.7 RATIO (0.9-2.4); AST(SGOT) 20 U/L (15-37); Alanine Aminotransfer ALT/SGPT 19 U/L (13-56); Albumin, Serum 3.3 g/dL (3.2-5.0); Alkaline Phosphatase 97 U/L (45-117); Anion Gap 10 (5-15); BUN 28 mg/dL (7-18); BUN/Creat Ratio 19.2 RATIO (10-20); Calcium,Total 9.3 mg/dL (8.5-10.1); Chloride 104 mmol/L (98-107); Creatinine, Serum 1.46 mg/dL (0.55-1.02); EST Glomerular Filtration Rate 36 mL/min (>60); Est Glom Filt Rate - Afr Amer 44 mL/min (>60); Globulin 4.8 g/dL (2.2-4.2); Glucose 104 mg/dL (74-106); Potassium 4.8 mmol/L (3.5-5.1); Protein, Total 8.1 g/dL (6.4-8.2); Sodium Level 141 mmol/L (136-145)
[2018-08-04 09:53] LABS: Microalbumin,Random Urine 39.6 mg/L (NO RANGE EST.); Microalbumin:Creatinine Ratio 45.4 mg/g CRE (<30 mg/g CRE)
== END | disposition home or self-care (01) ==
LOC: LAB 08:53
PROVIDERS: Family Provider Nurse Practitioner; PCP Nurse Practitioner; Referring Provider Nurse Practitioner; Visit Provider Nurse Practitioner
DX: N18.3 Chronic kidney disease, stage 3 (moderate) (principal)
CPT/HCPCS: 36415; 80053; 82043; 82570; 85025

== ENCOUNTER → 2018-11-18 08:43 | Outpatient (CLI) | payer MEDICARE, OTHER, SELFPAY ==
[2018-02-17 10:10] VITALS: BMI 37.6
[2018-11-18 09:15] LABS: Absolute Lymphocyte Count 1.61 X10^3/uL (0.83-4.51); Absolute Neutrophil Count 4.3 X10^3/uL (2.0-7.7); Basophil# 0.05 X10^3/uL; Basophil% 0.7 % (0-1); Eosinophil# 0.16 X10^3/uL; Eosinophils% 2.4 % (0-5); Hematocrit 40.7 % (37-47); Hemoglobin 12.4 g/dL (12.0-15.0); Lymphocyte # 1.61 X10^3/ul (4.0); Mean Corp Hgb Conc 30.5 g/dL (32-36); Mean Corpuscular Hgb 28.3 pg (27.0-32.0); Mean Corpuscular Volume 92.9 fL (81-99); Mean Platelet Vol. 9.8 fl (6.2-12.0); Monocyte# 0.57 X10^3/uL; Monocyte% 8.5 % (0-10); NRBC Flagged by Analyzer 0 % (0-5); Neutrophil # 4.29 X10^3/uL (2.7-7.7); Platelet Count 269 K/mm3 (150-450); RBC Distribution Width CV 15.2 % (11.6-14.6); RBC Distribution Width SD 52.3 fl (35.1-43.9); Red Blood Count 4.38 M/mm3 (4.2-5.4); White Blood Count 6.7 K/mm3 (4.4-11.0)
[2018-11-18 09:53] LABS: ALB/GLOB Ratio 0.7 RATIO (0.9-2.4); AST(SGOT) 20 U/L (15-37); Alanine Aminotransfer ALT/SGPT 17 U/L (13-56); Albumin, Serum 3.3 g/dL (3.2-5.0); Alkaline Phosphatase 88 U/L (45-117); Anion Gap 6 (5-15); BUN 29 mg/dL (7-18); BUN/Creat Ratio 20.3 RATIO (10-20); Calcium,Total 9.1 mg/dL (8.5-10.1); Chloride 104 mmol/L (98-107); Cholesterol 274 mg/dL (200); Creatinine, Serum 1.43 mg/dL (0.55-1.02); EST Glomerular Filtration Rate 37 mL/min (>60); Est Glom Filt Rate - Afr Amer 45 mL/min (>60); Globulin 4.6 g/dL (2.2-4.2); Glucose 107 mg/dL (74-106); High Density Lipoprotein 40 mg/dL; Potassium 4.5 mmol/L (3.5-5.1); Protein, Total 7.9 g/dL (6.4-8.2); Sodium Level 138 mmol/L (136-145); Thyroid Stim Hormone (TSH) 3.28 uIU/mL (0.358-3.74); Triglycerides 373 mg/dL; Very Low Density Lipoprotein 75 mg/dL (5-40)
== END ==
PROVIDERS: Family Provider Nurse Practitioner; PCP Nurse Practitioner; Referring Provider Nurse Practitioner; Visit Provider Nurse Practitioner
DX: E11.9 Type 2 diabetes mellitus without complications (principal); E78.5 Hyperlipidemia, unspecified; E03.9 Hypothyroidism, unspecified
CPT/HCPCS: 36415; 80053; 80061; 84443; 85025

== ENCOUNTER → 2018-12-16 10:55 | Outpatient (CLI) | payer MEDICARE, OTHER, SELFPAY ==
[2018-02-17 10:10] VITALS: BMI 37.6
--- NOTE | 2018-12-16 10:57 | US_ITS ---
STUDY: RENAL ULTRASOUND - COMPLETE REASON FOR EXAM: Female, 83 years old. Elevated BUN/creatinine TECHNIQUE: Ultrasound evaluation of the kidneys was performed with real-time and static jarvis-scale imaging. COMPARISON: None. FINDINGS: RIGHT KIDNEY: Normal location of the right kidney, which is normal in size. The right kidney measures 9.1 x 4.0 x 4.1 cm. There is a normal cortex of the right kidney. The renal cortex measures 1.3 cm. There is a 1.0 cm cyst. There are no right renal calculi. There is no right hydronephrosis. DISTAL RIGHT URETER: There is non-visualization of the distal right ureter. There is no demonstrated right ureterovesical junction calculus. There is a visualized right ureteral jet. LEFT KIDNEY: Normal location of the left kidney, which is normal in size. The left kidney measures 9.1 x 4.1 x 4.3 cm. There is a normal cortex of the left kidney. The renal cortex measures 1.3 cm. There is no left renal mass or cyst. There are no left renal calculi. There is no left hydronephrosis. DISTAL LEFT URETER: There is non-visualization of the distal left ureter. There is no demonstrated left ureterovesical junction calculus. There is a visualized left ureteral jet. AORTA: There is no elongation or tortuosity of the abdominal aorta. I.V.C.: The IVC is patent. BLADDER: The bladder distends normally, there is a 1.4 cm diverticulum. US/Kidney and Bladder IMPRESSION: No obstructive uropathy or suspicious solid lesion. Simple right renal cyst Bladder diverticulum Electronically Signed: Trace Suarez MD at 16:59 EDT , Service support ,
--- NOTE | 2018-12-16 10:57 | BI_ITS ---
MAMMOGRAPHY - BILATERAL SCREENING REASON FOR EXAM: Female, 83 years old. Routine annual screening examination. PERTINENT HISTORY: Non-contributory. Remote right excisional breast biopsy. TECHNIQUE: Digital bilateral breast eula (3D mammographic acquisition) in the CC and MLO projections. 2-D mediolateral oblique (MLO) and craniocaudad (CC) views of both breasts were obtained. CAD: Full Field Digital Mammography with Computer Added Detection was performed. COMPARISON: Comparison is made with prior study dated August 28, 2017 and March 28, 2016. FINDINGS: Breast Composition: There are scattered areas of fibroglandular density. There are no dominant masses or suspicious calcifications. No other significant abnormalities are identified. There has been no significant change since the prior study. BI/SCREEN MAMM (CAD) W/EULA BILAT IMPRESSION: Stable bilateral screening mammogram. Yearly follow-up mammogram recommended. (A) ASSESSMENT CATEGORY: BIRADS Category 2: Benign. A letter regarding these results will be sent to the patient by the facility within 30 days. Approximately 10% of breast cancers are not detected by mammography. A normal mammogram should not delay biopsy of a clinically suspicious abnormality. [id number] Electronically Signed: Alfonso Perez, at 14:10 EDT , Service support ,
== END ==
PROVIDERS: Family Provider Nurse Practitioner; PCP Nurse Practitioner; Referring Provider Nurse Practitioner; Visit Provider Nurse Practitioner
DX: N18.3 Chronic kidney disease, stage 3 (moderate) (principal); Z12.31 Encounter for screening mammogram for malignant neoplasm of breast
CPT/HCPCS: 76770; 77063; 77067

== ENCOUNTER → 2019-01-16 08:52 | Outpatient (CLI) | payer MEDICARE, OTHER, SELFPAY ==
[2018-12-29 13:40] VITALS: BMI 37.8
--- NOTE | 2019-01-16 08:53 | ECHOD_ITS ---
Reason For Study: CHF Procedure This was a 2D Doppler, Color Flow transthoracic echocardiogram. The study was technically difficult. Exam performed in department. Left Ventricle Normal LV size. Left ventricular systolic function is lower limits of normal. The estimated ejection fraction is 50 %. Diastolic function is indeterminate. No regional wall motion abnormalities noted. Right Ventricle Normal RV size. Normal systolic function. Atria Borderline to mildly enlarged left atrium. The right atrium is mildly enlarged. No doppler evidence for ASD. Mitral Valve There is mild mitral annular calcification. Extension of the mitral annular calcification onto the base of the posterior mitral valve leaflet. Mild (1+) mitral valve insufficiency. Tricuspid Valve Normal tricuspid valve. Moderate (2+) tricuspid valve insufficiency. Right ventricular systolic pressure estimated to be 32 mmHg. Aortic Valve Trisinus/trileaflet aortic valve. Mild diffuse aortic valve thickening. Mild focal aortic valve calcification. Pulmonic Valve The pulmonic valve is not well visualized. Trivial pulmonic valve insufficiency. Great Vessels Normal sized aortic root. Pericardium/Pleural No pericardial effusion. MMode/2D Measurements & Calculations LVIDd: 4.6 cm IVSd: 0.88 cm Ao root diam: 2.7 cm LVIDs: 3.4 cm LVPWd: 0.95 cm RVDd: 4.0 cm FS: 25.1 % LAV(MOD-bp): 53.5 ml LA A4 area: 17.8 cm2 LA dimension(2D): 3.1 cm LAV(MOD-bp) Indexed: 29.8 ml/m2 LAV(MOD-sp2): 56.7 ml LAV(MOD-sp4): 46.4 ml RA A4 area: 18.1 cm2 Time Measurements MV dec time: 0.23 sec Doppler Measurements & Calculations MV E max win: 53.4 cm/sec Lat Peak E' Win: 3.7 cm/sec Med Peak E' Win: 3.2 cm/sec MV A max win: 92.0 cm/sec E/E' lat: 14.5 E/E' med: 16.9 MV E/A: 0.58 Ao V2 max: 148.2 cm/sec LV V1 max: 88.1 cm/sec PA V2 max: 119.7 cm/sec Ao max P.8 mmHg LV V1 max P.1 mmHg TR max win: 268.5 cm/sec TR max P.9 mmHg Interpretation Summary The study was technically difficult. Left ventricular systolic function is lower limits of normal. The estimated ejection fraction is 50 %. Borderline to mildly enlarged left atrium. The right atrium is mildly enlarged. There is mild mitral annular calcification. Extension of the mitral annular calcification onto the base of the posterior mitral valve leaflet. Mild (1+) mitral valve insufficiency. Moderate (2+) tricuspid valve insufficiency. Mild diffuse aortic valve thickening. Mild focal aortic valve calcification. Trivial pulmonic valve insufficiency. Right ventricular systolic pressure estimated to be 32 mmHg. Diastolic function is indeterminate. Ordering Physician: Uday Walker Referring Physician: Missy Long Performed By: Katiana Poole, GABBIE, RVT
== END ==
PROVIDERS: Family Provider Nurse Practitioner; PCP Nurse Practitioner; Referring Provider Internal Medicine Cardiovascular Disease; Visit Provider Internal Medicine Cardiovascular Disease
DX: I50.22 Chronic systolic (congestive) heart failure (principal); I43 Cardiomyopathy in diseases classified elsewhere
CPT/HCPCS: 93306

== ENCOUNTER → 2019-03-09 08:05 | Outpatient (CLI) | payer MEDICARE, OTHER, SELFPAY ==
[2018-12-29 13:40] VITALS: BMI 37.8
[2019-03-09 10:08] LABS: ALB/GLOB Ratio 0.7 RATIO (0.9-2.4); AST(SGOT) 24 U/L (15-37); Alanine Aminotransfer ALT/SGPT 18 U/L (13-56); Albumin, Serum 3.2 g/dL (3.2-5.0); Alkaline Phosphatase 87 U/L (45-117); Anion Gap 5 (5-15); BUN 27 mg/dL (7-18); BUN/Creat Ratio 21.1 RATIO (10-20); Calcium,Total 9.3 mg/dL (8.5-10.1); Chloride 106 mmol/L (98-107); Cholesterol 308 mg/dL (200); Creatinine, Serum 1.28 mg/dL (0.55-1.02); EST Glomerular Filtration Rate 42 mL/min (>60); Est Glom Filt Rate - Afr Amer 51 mL/min (>60); Globulin 4.5 g/dL (2.2-4.2); Glucose 103 mg/dL (74-106); High Density Lipoprotein 44 mg/dL; Potassium 4.2 mmol/L (3.5-5.1); Protein, Total 7.7 g/dL (6.4-8.2); Sodium Level 139 mmol/L (136-145); Thyroid Stim Hormone (TSH) 4.75 uIU/mL (0.358-3.74); Triglycerides 457 mg/dL
== END ==
PROVIDERS: Family Provider Nurse Practitioner; PCP Nurse Practitioner; Referring Provider Nurse Practitioner; Visit Provider Nurse Practitioner
DX: N18.3 Chronic kidney disease, stage 3 (moderate) (principal); E55.9 Vitamin D deficiency, unspecified; E78.5 Hyperlipidemia, unspecified; E03.9 Hypothyroidism, unspecified
CPT/HCPCS: 36415; 80053; 80061; 82306; 84443

== ENCOUNTER → 2019-05-05 08:40 | Outpatient (CLI) | payer MEDICARE, OTHER, SELFPAY ==
[2018-12-29 13:40] VITALS: BMI 37.8
--- NOTE | 2019-05-05 08:49 | RAD_ITS ---
STUDY: X-RAY - LEFT KNEE REASON FOR EXAM: Female, 84 years old. stepping down and felt a pop in left knee. pain TECHNIQUE: 4 view(s) of the knee. COMPARISON: None. FINDINGS: Normal visualized distal femur. Normal visualized proximal tibia and fibula. Normal proximal tibiofibular articulation. There is moderate degenerative arthrosis of the medial femorotibial compartment with moderate joint space narrowing. There is mild degenerative arthrosis of the lateral femorotibial compartment. There is mild degenerative arthrosis of the patellofemoral articulation. There is a soft tissue prominence in the suprapatellar region suggesting a small volume joint effusion. The soft tissue structures are unremarkable. RAD/Knee 4 or More Views IMPRESSION: Degenerative arthrosis. Electronically Signed: Delvin Groves MD at 9:12 EST Tel , Service support ,
== END ==
PROVIDERS: PCP Nurse Practitioner; Referring Provider Nurse Practitioner; Visit Provider Nurse Practitioner
DX: M25.562 Pain in left knee (principal)
CPT/HCPCS: 73564

== ENCOUNTER → 2023-01-30 | Outpatient (CLI) | payer MEDICARE, OTHER, SELFPAY ==
[2023-01-30 17:35] LABS: Absolute Lymphocyte Count 1.96 X10^3/uL (0.83-4.51); Absolute Neutrophil Count 8.2 X10^3/uL (2.0-7.7); Basophil# 0.05 X10^3/uL; Basophil% 0.4 % (0-1); Eosinophil# 0.15 X10^3/uL; Eosinophils% 1.3 % (0-5); Hematocrit 37.6 % (37-47); Hemoglobin 11.3 g/dL (12.0-15.0); Lymphocyte # 1.96 X10^3/ul (0.83-4.51); Lymphocyte % 16.9 % (19-41); Mean Corp Hgb Conc 30.1 g/dL (32-36); Mean Corpuscular Hgb 28.3 pg (27.0-32.0); Mean Corpuscular Volume 94.2 fL (81-99); Mean Platelet Vol. 10.1 fl (6.2-12.0); Monocyte# 1.14 X10^3/uL; Monocyte% 9.8 % (0-10); NRBC Flagged by Analyzer 0 % (0-5); Neutrophil # 8.24 X10^3/uL (2.7-7.7); Neutrophil % 70.9 % (47-70); Platelet Count 383 K/mm3 (150-450); RBC Distribution Width CV 14.7 % (11.6-14.6); RBC Distribution Width SD 50.8 fl (35.1-43.9); Red Blood Count 3.99 M/mm3 (4.2-5.4); White Blood Count 11.6 K/mm3 (4.4-11.0)
[2023-01-30 18:11] LABS: ALB/GLOB Ratio 0.6 RATIO (0.9-2.4); AST(SGOT) 19 U/L (15-37); Alanine Aminotransfer ALT/SGPT 23 U/L (13-56); Alkaline Phosphatase 127 U/L (45-117); Anion Gap 10 (5-15); BUN 37 mg/dL (7-18); BUN/Creat Ratio 25.2 RATIO (10-20); Calcium,Total 9.1 mg/dL (8.5-10.1); Chloride 98 mmol/L (98-107); Creatinine, Serum 1.47 mg/dL (0.55-1.02); EST Glomerular Filtration Rate 36 mL/min (>60); Est Glom Filt Rate - Afr Amer 43 mL/min (>60); Globulin 5.3 g/dL (2.2-4.2); Glucose 97 mg/dL (74-106); Potassium 4.4 mmol/L (3.5-5.1); Protein, Total 8.3 g/dL (6.4-8.2); Sodium Level 136 mmol/L (136-145); Uric Acid 6.6 mg/dL (2.6-6.0)
== END | disposition home or self-care (01) ==
PROVIDERS: PCP Nurse Practitioner Family; Referring Provider Podiatrist; Visit Provider Podiatrist
DX: M10.471 Other secondary gout, right ankle and foot (principal)
CPT/HCPCS: 36415; 80053; 84550; 85025